=== PATIENT | male | born 1960 | race Caucasian/White ===

== ENCOUNTER 2023-01-30 16:11 | Observation (INO) | payer BC, SELFPAY ==
[2023-01-30] VITALS (40 sets, daily range): BP systolic 153–176; BP diastolic 90–102; PULSE 55–64; RESP 18–24; TEMP 36.4–36.8; O2SAT 95–99; BMI 31.3
--- NOTE | 2023-01-30 16:19 | CRLHL7_ITS ---
For Patients: As a result of the Century Cures Act, medical imaging exams and procedure reports are released immediately into your electronic medical record. You may view this report before your referring provider. If you have questions, please contact your health care provider. INDICATION: Weakness TECHNIQUE: Non-contrast CT of the head is submitted. No comparisons. FINDINGS: The cerebellar tonsils extend 1.5 centimeters below the foramen magnum. The remainder of the ventricles, sulci and gyri are of normal size, shape and contour. Midline structures are centrally located. No convincing evidence of intra- or extra-axial fluid collections. IMPRESSION: 1. No radiographic evidence of acute intracranial abnormalities. 2. 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 Dictated by Alvin Marc MD @ 01/30/2023 4:45:33 PM Please note that all CT scans at this facility use dose modulation, iterative reconstruction, and/or weight-based dosing when appropriate to reduce radiation dose to as low as reasonably achievable. Dictated by: Alvin Marc MD @ 01/30/2023 16:45:47 (Electronically Signed)
[2023-01-30 16:35] LABS: HCO3 VBG 27 mmol/L (21-28); Lactate* 1.5 mmol/L (0.5-1.9); PCO2 VBG 46 mmHG (40-50); PO2 VBG 41.3 mmHG (25-47); pH VBG 7.371 (7.32-7.43)
[2023-01-30 16:37] LABS: Basophils Absolute Auto 0.01 K/uL (0.00-0.30); Basophils Percent Auto 0.1 % (0.0-3.0); Eosinophils Absolute Auto 0.06 K/uL (0.00-0.50); Eosinophils Percent Auto 0.7 % (0.0-7.0); Hemoglobin* 14.3 gm/dL (13.5-17.5); Immature Granulocytes Abs Auto 0.01 K/uL (0.00-0.30); Immature Granulocytes Pct Auto 0.1 %; Lymphocytes Percent Auto 14.4 % (20-44); Mean Corpuscular HGB Conc 33 gm/dL (32-36); Mean Corpuscular Hemoglobin 30 pg (26-34); Mean Corpuscular Volume 92 fL (80-100); Neutrophils Percent Auto 79.7 % (42.0-72.0); Platelet Count* 218 K/uL (140-440); RDW Coefficient of Variation % 12.7 % (11.5-15.5); Red Blood Count 4.81 m/uL (4.30-5.90); White Blood Count* 8.39 K/uL (4.50-11.00)
[2023-01-30 16:38] LABS: Slide Review Reflex No
[2023-01-30] MEDS: 0.9 % SODIUM CHLORIDE 1000 ml 1,000 ML IV (16:45)
[2023-01-30 16:53] LABS: Chloride* 103 mmol/L (96-114); Potassium* 3.3 mmol/L (3.6-5.1); Sodium* 136 mmol/L (135-149)
[2023-01-30 16:54] LABS: Albumin* 4.3 g/dL (3.3-5.0)
[2023-01-30 16:55] LABS: Creatinine* 0.9 mg/dL (0.5-1.5); Estimated Glomerular Filt Rate 96 ml/min; INR 1.05 (0.91-1.10); Prothrombin Time 14.3 Seconds
[2023-01-30 16:56] LABS: Blood Urea Nitrogen* 19 mg/dL (7-30); Calcium* 9.1 mg/dL (8.4-10.6); Carbon Dioxide* 26 mmol/L (20-32); Glucose* 144 mg/dL (60-115)
[2023-01-30 16:57] LABS: Alanine Aminotransferase* 26 U/L (4-50); Alkaline Phosphatase* 95 U/L (40-150); Aspartate Amino Transferase* 29 U/L (12-35); Bilirubin Direct* 0.3 mg/dL (0.0-0.5); Total Protein* 7.1 g/dL (6.0-8.3)
[2023-01-30 17:01] LABS: C Reactive Protein* < 0.5 mg/dL (0.5-1.0)
--- NOTE | 2023-01-30 17:08 | ED_ITS ---
HPI - General Adult General Date Seen: 01/30/23 Chief complaint: Altered Mental Status Stated complaint: Heat exhaustion Time Seen by Provider: 01/30/23 16:18 Source: patient and EMS Mode of arrival: EMS Limitations: altered mental status History of Present Illness HPI narrative: Patient is a 62-year-old male brought in by EMS after being found minimally responsive in his tractor. He tells me that around 230 or so a neighbor had come by to talk to him, he started feel tired at that point so he decided to just sit in his truck and take a break. EMS reported that he was minimally responsive but improved and route. They had noted a blood sugar of 144, did not check his temperature. He does tell me that he drank a bottle and half of Gatorade earlier today. Medics had reported that he was possibly having some left-sided symptoms but he denies any unilateral weakness, difficulty with speech, and I do not see evidence of a facial droop. He does note that he developed headache earlier which has improved now although it is not gone. Denies neck pain. No trauma. No recent illness, fevers, chills, vomiting, black or bloody stools or other complaints. Related Data Home Medications Medication Instructions Recorded Confirmed atorvastatin 20 mg tablet 20 mg PO DAILY 01/30/23 01/30/23 losartan 100 1 tab PO DAILY 01/30/23 01/30/23 mg-hydrochlorothiazide 25 mg tablet metoprolol succinate 25 mg 25 mg PO DAILY 01/30/23 01/30/23 tablet,extended release 24 hr mometasone-formoterol HFA 100 2 puff inhalation BID 01/30/23 01/30/23 mcg-5 mcg/actuation aerosol inhaler (Dulera) roflumilast 500 mcg tablet 500 mcg PO DAILY 01/30/23 01/30/23 Allergies Allergy/AdvReac Type Severity Reaction Status Date / Time No Known Drug Allergies Allergy Verified 01/30/23 16:20 Review of Systems Status of ROS: Reports: 10 or more systems reviewed and unremarkable except as noted in History and below [facility] Medical History (Updated 01/30/23 @ 23:20 by Tara Calixto MD) Hyperlipidemia ?E78.5 - Hyperlipidemia, unspecified (ICD-10) COPD (chronic obstructive pulmonary disease) ?J44.9 - Chronic obstructive pulmonary disease, unspecified (ICD-10) Essential hypertension ?I10 - Essential (primary) hypertension (ICD-10) Surgical History (Updated 01/30/23 @ 23:16 by Tara Calixto MD) History of appendectomy ?Z90.49 - Acquired absence of other specified parts of digestive tract (ICD- 10) H/O umbilical hernia repair ?Z98.890 - Other specified postprocedural states (ICD-10) ?Z87.19 - Personal history of other diseases of the digestive system (ICD-10) Social History What is your current living situation: I presently have a place to live Problems where you live: no known problems Problems where you live details: none In the past 12 months, utilities in danger of being shut off: no In the past 12 mos, have been you worried that your food would run out before you had money to buy more?: never true In the past 12 mos, the food you bought just didn't last and you didn't have money to buy more?: never true Highest level of school completed/degree received: high school graduate Smoking Status: Never smoker How often do you have a drink containing alcohol: monthly or less How often do you have six or more drinks on one occasion: Never AUDIT-C Alcohol total score: 1 Non-prescribed substance use: denies use Caffeine: No How often does anyone, including family, friends and others, physically hurt you : How often does anyone, including family, friends and others, insult or talk down to you: How often does anyone, including family, friends and others, threaten you with harm: How often does anyone, including family, friends and others, scream or curse at you: service: No Exam Narrative: Exam Narrative: Vital signs as noted above. In general, an alert, nontoxic patient. He looks a little sleepy but is awake and conversant. Head: Normocephalic, atraumatic. Eyes: Pupils are equal reactive. Extraocular movements are full. Conjunctivae are normal. ENT: Mucous membranes are moist. Throat is normal. Neck: Supple without lymphadenopathy. Heart: Bradycardic and regular, no murmur. Lungs: Clear bilaterally. No increased work of breathing, crackles or wheezes. Abdomen: Soft and nontender. No organomegaly. Extremities: Well perfused. No edema. No calf tenderness. Pulses intact. Neurologic: Patient is alert and oriented to person and place. Speech is fluent. Face is symmetric. Moves all extremities equally. Strength is 5 of 5 in bilateral upper and lower extremities. Cerebellar function intact by finger- nose testing. Affect: Normal. Skin: Warm and dry. Well perfused. He had a wood tick attached to his left chest, which are removed. Tick was not engorged, suspect it was recently entire chest. Const: Vital Signs, click to edit/add: Vital Signs - 24 hr 01/30/23 16:18 01/30/23 16:19 01/30/23 16:31 Temperature 97.7 F Pulse Rate Pulse Rate [Pulse Oximeter] 61 Respiratory Rate 24 Blood Pressure 157/102 H Blood Pressure [Le ft Upper Arm] 153/101 H Blood Pressure [Ri ght Arm] Pulse Oximetry 98 96 Oxygen Delivery Me od Room Air 01/30/23 16:40 01/30/23 16:42 01/30/23 16:45 Temperature Pulse Rate 59 L 58 L 59 L Pulse Rate [Pulse Oximeter] Respiratory Rate Blood Pressure 160/94 H Blood Pressure [Le ft Upper Arm] Blood Pressure [Ri ght Arm] Pulse Oximetry 95 96 96 Oxygen Delivery Me od 01/30/23 16:47 01/30/23 16:48 01/30/23 17:00 Temperature Pulse Rate 58 L 59 L 61 Pulse Rate [Pulse Oximeter] Respiratory Rate Blood Pressure 156/96 H Blood Pressure [Le ft Upper Arm] Blood Pressure [Ri ght Arm] Pulse Oximetry 96 96 97 Oxygen Delivery Me od 01/30/23 17:02 01/30/23 17:15 01/30/23 17:17 Temperature Pulse Rate 60 62 61 Pulse Rate [Pulse Oximeter] Respiratory Rate Blood Pressure 158/93 H 164/95 H Blood Pressure [Le ft Upper Arm] Blood Pressure [Ri ght Arm] Pulse Oximetry 97 98 97 Oxygen Delivery Me thod 01/30/23 17:30 01/30/23 17:32 01/30/23 17:33 Temperature Pulse Rate 60 59 L 59 L Pulse Rate [Pulse Oximeter] Respiratory Rate Blood Pressure 161/93 H Blood Pressure [Le ft Upper Arm] Blood Pressure [Ri ght Arm] Pulse Oximetry 98 98 97 Oxygen Delivery Me thod 01/30/23 17:44 01/30/23 17:45 01/30/23 17:47 Temperature 97.6 F Pulse Rate 60 63 Pulse Rate [Pulse Oximeter] Respiratory Rate Blood Pressure 155/94 H Blood Pressure [Le ft Upper Arm] Blood Pressure [Ri ght Arm] Pulse Oximetry 98 98 Oxygen Delivery Me thod 01/30/23 18:00 01/30/23 18:02 01/30/23 18:15 Temperature Pulse Rate 59 L 60 59 L Pulse Rate [Pulse Oximeter] Respiratory Rate Blood Pressure 158/93 H Blood Pressure [Le ft Upper Arm] Blood Pressure [Ri ght Arm] Pulse Oximetry 97 98 97 Oxygen Delivery Me thod 01/30/23 18:17 01/30/23 18:30 01/30/23 18:32 Temperature Pulse Rate 59 L 58 L 58 L Pulse Rate [Pulse Oximeter] Respiratory Rate Blood Pressure 162/99 H 156/98 H Blood Pressure [Le ft Upper Arm] Blood Pressure [Ri ght Arm] Pulse Oximetry 98 97 97 Oxygen Delivery Me thod 01/30/23 18:45 01/30/23 18:47 01/30/23 19:00 Temperature Pulse Rate 58 L 60 63 Pulse Rate [Pulse Oximeter] Respiratory Rate Blood Pressure 163/99 H Blood Pressure [Le ft Upper Arm] Blood Pressure [Ri ght Arm] Pulse Oximetry 98 98 99 Oxygen Delivery Me thod 01/30/23 19:02 01/30/23 19:07 01/30/23 19:15 Temperature Pulse Rate 63 64 62 Pulse Rate [Pulse Oximeter] Respiratory Rate Blood Pressure 164/92 H 169/90 H Blood Pressure [Le ft Upper Arm] Blood Pressure [Ri ght Arm] Pulse Oximetry 98 99 98 Oxygen Delivery Me thod 01/30/23 19:17 01/30/23 19:18 01/30/23 19:30 Temperature Pulse Rate 61 60 59 L Pulse Rate [Pulse Oximeter] Respiratory Rate Blood Pressure 163/94 H Blood Pressure [Le ft Upper Arm] Blood Pressure [Ri ght Arm] Pulse Oximetry 97 97 97 Oxygen Delivery Me thod 01/30/23 19:32 01/30/23 19:53 01/30/23 19:54 Temperature Pulse Rate 58 L 61 62 Pulse Rate [Pulse Oximeter] Respiratory Rate Blood Pressure 155/96 H 176/102 H Blood Pressure [Le ft Upper Arm] Blood Pressure [Ri ght Arm] Pulse Oximetry 96 97 97 Oxygen Delivery Me thod 01/30/23 20:00 01/30/23 20:04 01/30/23 20:42 Temperature 98.2 F Pulse Rate 59 L Pulse Rate [Pulse Oximeter] 57 L Respiratory Rate 18 Blood Pressure 165/94 H Blood Pressure [Le ft Upper Arm] Blood Pressure [Ri ght Arm] 157/95 H Pulse Oximetry 98 98 Oxygen Delivery Me thod Room Air Documenting provider has reviewed patient's vital signs: yes Course Course Hospital Course: Patient's temperature here is normal, I do not think this represents heat stroke. Following initial evaluation he had an EKG which showed a sinus rhythm of 65 beats per minute, no acute ST segment changes. 1 PVC. His initial troponin is 0, will recheck a troponin in 90 minutes or so although I do not have anything overtly to suggest acute coronary syndrome based on his symptoms. I did have a head CT done right away to rule out intracranial hemorrhage, by my review this was negative. He has a Chiari 1 malformation without evidence of hydrocephalus but otherwise a normal head CT according to Radiology. Labs are returning very reassuring. White blood cell count is normal at 8.4, hemoglobin 14.3, normal platelets. Mild left shift with 78% neutrophils. His CRP is less than 0.5. A venous gas was normal with a pH of 7.37, pCO2 46, bicarb of 27. Lactate was normal 1.5. Metabolic panel is normal, sodium is 136, potassium mildly low at 3.3. BUN and creatinine are normal. LFTs are unremarkable. TSH is pending. On recheck, he is feeling more somnolent but still is oriented to date, place, able to tell me his birthday and 's name. Exam remains nonfocal with equal strength in upper and lower extremities and no facial droop. Reevaluation(s) Reevaluation #1: Patient had some brief episodes of bradycardia into the 30s but these did not seem to correlate with any kind of symptoms. Blood pressure was stable. Repeat EKG shows a sinus rhythm, ventricular rate in the 50s. I did look with the bedside ultrasound, aorta looked normal, overall cardiac function looked unremarkable. He noted some upper abdominal pain so I elected to do a CT scan of the abdomen. I noted cysts on both kidneys, no other significant findings. Read by Radiology as showing multiple cysts but 1 which was hyperdense and follow-up imaging recommended. Did have difficulty voiding initially but then was able to void about 500 mL and abdominal pain was improved. Case was discussed with Neurology, Dr. Pennington at [facility]. Given unremarkable intracranial imaging and nonfocal exam, he did not feel that emergent MRI was necessary. We did discuss a possible diagnosis of PRES, not entirely ruled out despite patient's normal blood pressure, but CT does not show any abnormal findings and at this point he would recommend observation unless exam changes. He was slightly more alert later in his ER stay but is not at baseline mental status. Etiology of symptoms is unclear at this time. Plan is for admission to the hospital for observation and further testing if indicated. Currently no sign of infection, metabolic derangement, ischemia or hemorrhagic stroke, acute coronary syndrome, or environmental issue such as heat stroke. Vital Signs Vital signs: Initial Vital Signs Temperature 97.7 F 01/30/23 16:18 Temperature Source Oral 01/30/23 16:18 Pulse Rate 61 01/30/23 16:18 Respiratory Rate 24 01/30/23 16:18 Blood Pressure 153/101 H 01/30/23 16:18 Blood Pressure Mean 118 H 01/30/23 16:18 Blood Pressure Position Supine 01/30/23 16:18 Pulse Oximetry 98 01/30/23 16:18 Oxygen Delivery Method Room Air 01/30/23 16:18 Vital Signs Temperature 97.7 F 01/30/23 16:18 Pulse Rate 61 01/30/23 16:18 Respiratory Rate 24 01/30/23 16:18 Blood Pressure 153/101 H 01/30/23 16:18 Pulse Oximetry 98 01/30/23 16:18 Oxygen Delivery Method Room Air 01/30/23 16:18 Temperature 98.2 F 01/30/23 20:42 Pulse Rate 57 L 01/30/23 20:42 Respiratory Rate 18 01/30/23 20:42 Blood Pressure 157/95 H 01/30/23 20:42 Pulse Oximetry 98 01/30/23 20:42 Oxygen Delivery Method Room Air 01/30/23 20:42 Medical Decision Making Lab Data Labs: Lab Results 01/30/23 01/30/23 01/30/23 Range/Units 16:28 18:19 20:00 WBC 8.39 (4.50-11.00) K/uL RBC 4.81 (4.30-5.90) m/uL Hgb 14.3 (13.5-17.5) gm/dL Hct 44.0 (37.0-53.0) % MCV 92 (80-100) fL MCH 30 (26-34) pg MCHC 33 (32-36) gm/dL RDW Coeff of Daniela 12.7 (11.5-15.5) % Plt Count 218 (140-440) K/uL Neut % (Auto) 79.7 H (42.0-72.0) % Lymph % (Auto) 14.4 L (20-44) % [place] % (Auto) 5.0 (0.0-11.0) % Eos % (Auto) 0.7 (0.0-7.0) % Baso % (Auto) 0.1 (0.0-3.0) % Neut # (Auto) 6.70 (1.7-7.0) K/uL Lymph # (Auto) 1.20 (0.90-2.90) K/uL [place] # (Auto) 0.40 (0.00-0.90) K/UL Eos # (Auto) 0.06 (0.00-0.50) K/uL Baso # (Auto) 0.01 (0.00-0.30) K/uL INR 1.05 (0.91-1.10) VBG pH 7.371 (7.32-7.43) VBG pCO2 46 (40-50) mmHG VBG pO2 41.3 (25-47) mmHG VBG HCO3 27 (21-28) mmol/L Sodium 136 (135-149) mmol/L Potassium 3.3 L (3.6-5.1) mmol/L Chloride 103 (96-114) mmol/L Carbon Dioxide 26 (20-32) mmol/L BUN 19 (7-30) mg/dL Creatinine 0.9 (0.5-1.5) mg/dL Estimated GFR 96 ml/min Glucose 144 H (60-115) mg/dL Lactate 1.5 (0.5-1.9) mmol/L Calcium 9.1 (8.4-10.6) mg/dL Total Bilirubin 1.0 (0.1-1.5) mg/dL Direct Bilirubin 0.3 (0.0-0.5) mg/dL AST 29 (12-35) U/L ALT 26 (4-50) U/L Alkaline Phosphatase 95 (40-150) U/L C-Reactive Protein < 0.5 L (0.5-1.0) mg/dL Total Protein 7.1 (6.0-8.3) g/dL Albumin 4.3 (3.3-5.0) g/dL TSH 1.120 (0.270-4.200) uIU/mL Urine Color Yellow (Yellow) Urine Appearance Clear (Clear) Urine pH 6.5 (5.0-8.5) Ur Specific [place] 1.020 (1.000-1.030) Urine Protein Negative (Negative) Urine Glucose (UA) Negative (Negative) Urine Ketones Negative (Negative) Urine Blood Negative (Negative) Urine Nitrite Negative (Negative) Urine Bilirubin Negative (Negative) Urine Urobilinogen 0.2 (0.2-1.0) Ur Leukocyte Esterase Negative (Negative) Urine RBC 0-2 (0-2) Urine WBC 0-2 (0-5) Ur Squamous Epith Cells None (None-Few) Other Sediment SPERM (None) Urine Bacteria None (None) Ethyl Alcohol < 0.01 L (0.01-0.03) % SARS-CoV-2 (PCR) Negative SARS-CoV-2 (Negative) POC Troponin I 0.00 L 0.01 (0.01-0.04) ng/ml Discharge Plan Discharge Clinical Impression: Altered mental status Patient Disposition: Admitted As Inpatient Condition: Improved
[2023-01-30 17:12] LABS: SARS PCR* Negative SARS-CoV-2 (Negative)
--- NOTE | 2023-01-30 17:16 | ED.NURSE ---
Attempted to help pt sit at bedside to void into urinal, pt got extremely dizzy and flopped back onto the bed. Pt was still A&O, but stated he was extremely dizzy. Bladder scan done, ~3mLs. MD Isaacs updated.
[2023-01-30 18:03] LABS: Ethanol* < 0.01 % (0.01-0.03)
--- NOTE | 2023-01-30 18:30 | ED.NURSE ---
Pt HR noted to drop to ~35 on the monitor. This is the second time this web content writer has noticed the pt's HR drop. Pt asymptomatic. Pt HR recovered to 50+ within a minute. notified.
[2023-01-30 18:45] LABS: Troponin, Point-of-Care* 0.01 ng/ml (0.01-0.04)
--- NOTE | 2023-01-30 18:55 | ED.NURSE ---
Pt stating need to urinate. Unable to void even with feeling of fullness. Bladder scan done, ~385mLs. Pt HR dropped to ~26 on the monitor during bladder scan. Pt states asymptomatic during this episode. HR recovered to 50+ within a minute again. notified of all these findings.
--- NOTE | 2023-01-30 19:10 | ED.NURSE ---
Pt HR dropped again on the monitor into the 30's. Radial pulse palpated by resume writer and monitor reading was accurate. Pt now complaining of left-sided chest pain and abdominal pain. MD requested to come to bedside. Pacer pads applied to pt. MD at bedside to evaluate pt. MD ultrasound at bedside. EKG set up to capture rhythm if HR drops again.
--- NOTE | 2023-01-30 19:31 | CRLHL7_ITS ---
For Patients: As a result of the Century Cures Act, medical imaging exams and procedure reports are released immediately into your electronic medical record. You may view this report before your referring provider. If you have questions, please contact your health care provider. INDICATION: Upper abdominal pain, weakness TECHNIQUE: CT abdomen and pelvis acquired with 98 cc Isovue 370 IV contrast. Permanently recorded images are archived. COMPARISON: None. FINDINGS: Lower chest: Unremarkable. Liver: Unremarkable. Normal in size and attenuation. No suspicious masses. Gallbladder and bile ducts: Unremarkable. No stones or inflammation. No biliary dilatation. Pancreas: Unremarkable. No mass or inflammation. Spleen: Scattered calcified granulomata. Adrenal glands: Unremarkable. No nodules. Kidneys, Ureters, and Bladder: 1.9 cm hyperdense exophytic right renal lesion. Multiple bilateral simple renal cysts. Unremarkable ureters and bladder. GI tract: Unremarkable. Normal in caliber. No sign of inflammation. The appendix is not clearly visualized; however, there are no inflammatory changes in the right lower quadrant. Vasculature: Abdominal aorta is normal in caliber. Mesenteric arteries are patent. Lymph nodes: No lymphadenopathy. Peritoneum/Abdominal Wall: Unremarkable. No free air or significant free fluid. Pelvis: Unremarkable. Bones: Unremarkable for age. IMPRESSION: No acute findings within the abdomen and pelvis. Exophytic 1.9 cm hyperdense right renal lesion. This could represent a proteinaceous or hemorrhagic cyst; however, renal cell carcinoma cannot be entirely excluded. As result, recommend renal CT or MRI for further evaluation. Please note that all CT scans at this facility use dose modulation, iterative reconstruction, and/or weight-based dosing when appropriate to reduce radiation dose to as low as reasonably achievable. Dictated by Marcos Gallegos MD @ 01/30/2023 8:15:02 PM (Electronically Signed)
--- NOTE | 2023-01-30 19:35 | W.PC.EDHO ---
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 Very warm, tired. Weaker than usual. ED Triage Date of Onset of 01/30/23 Symptoms Female History Patient Ridgeley Coma Scale Ridgeley coma scale total score 15 Pain Pain Intensity 6 Pain Intensity 4 Pain Scale Used Allred-Santos (Faces) Pain Scale Used Allred-Santos (Faces) IV Insertion/Site Date of IV Line Insertion [ 01/30/23 Left Antecubital] Date of IV Line Insertion [ 01/30/23 Right Antecubital] Oxygen Administration Pulse Oximetry 97 Pulse Oximetry 98 Pulse Oximetry 99 Pulse Oximetry 98 Pulse Oximetry 99 Pulse Oximetry 98 Pulse Oximetry 98 Pulse Oximetry 97 Pulse Oximetry 97 Pulse Oximetry 98 Pulse Oximetry 97 Pulse Oximetry 98 Pulse Oximetry 97 Pulse Oximetry 98 Pulse Oximetry 98 Pulse Oximetry 97 Pulse Oximetry 98 Pulse Oximetry 98 Pulse Oximetry 97 Pulse Oximetry 98 Pulse Oximetry 97 Pulse Oximetry 97 Pulse Oximetry 96 Pulse Oximetry 96 Pulse Oximetry 96 Pulse Oximetry 96 Pulse Oximetry 95 Pulse Oximetry 96 Pulse Oximetry 98 Oxygen Delivery Method Room Air Cardiac Monitoring EKG Method 12 Lead
--- NOTE | 2023-01-30 19:45 | ED.NURSE ---
Pacer pads removed from pt for completion of CT scan.
--- NOTE | 2023-01-30 20:08 | ED.NURSE ---
Pt assisted to stand at the bedside to urinate. Pt very dizzy and unsteady sitting up and standing. Pt able to stand with assist of one, voided into urinal ~550mLs pale yellow urine. UA collected and sent to lab. notified.
[2023-01-30 20:11] LABS: Appearance Urine Clear (Clear); Bilirubin Urine Negative (Negative); Blood Urine Negative (Negative); Color Urine Yellow (Yellow); Glucose Urine Negative (Negative); Ketones Urine Negative (Negative); Leukocyte Esterase Urine Negative (Negative); Nitrite Urine Negative (Negative); Protein Urine Negative (Negative); Urobilinogen Urine 0.2 (0.2-1.0); pH Urine 6.5 (5.0-8.5)
[2023-01-30 20:21] LABS: RBC Urine 0-2 (0-2); WBC Urine 0-2 (0-5)
[2023-01-30 20:24] LABS: Other Sediment Urine SPERM
--- NOTE | 2023-01-30 21:21 | CRLHL7_ITS ---
For Patients: As a result of the Century Cures Act, medical imaging exams and procedure reports are released immediately into your electronic medical record. You may view this report before your referring provider. If you have questions, please contact your health care provider. INDICATION: Headache, syncope, weakness. TECHNIQUE: CTA neck with contrast bolus tracking, 3D angiographic rendering using maximum intensity projection (MIP) and images permanently archived. FINDINGS: There is minor carotid atherosclerosis. There is no significant carotid artery stenosis or dissection. There is no significant vertebral artery stenosis or dissection. The soft tissues of the neck are within normal limits. The cervical spine is in normal alignment. Degenerative changes are noted in the cervical spine. IMPRESSION: Unremarkable neck CTA. No significant carotid or vertebral artery stenosis or dissection. Please note that all CT scans at this facility use dose modulation, iterative reconstruction, and/or weight-based dosing when appropriate to reduce radiation dose to as low as reasonably achievable. Dictated by Adair Tenorio MD @ 01/31/2023 11:53:19 AM (Electronically Signed)
--- NOTE | 2023-01-30 21:21 | CRLHL7_ITS ---
For Patients: As a result of the Century Cures Act, medical imaging exams and procedure reports are released immediately into your electronic medical record. You may view this report before your referring provider. If you have questions, please contact your health care provider. INDICATION: Headache, syncope, weakness. TECHNIQUE: CTA head with contrast bolus tracking, 3D angiographic rendering using maximum intensity projection (MIP) and images permanently archived. FINDINGS: There is normal opacification of the intracranial vasculature. There is no large vessel occlusion. No aneurysm is identified. IMPRESSION: Unremarkable head CTA. No large vessel occlusion. Please note that all CT scans at this facility use dose modulation, iterative reconstruction, and/or weight-based dosing when appropriate to reduce radiation dose to as low as reasonably achievable. Dictated by Adair Tenorio MD @ 01/31/2023 11:51:38 AM (Electronically Signed)
--- NOTE | 2023-01-30 21:25 | PM.IMHP1 ---
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 This afternoon, he started feeling tired and had a frontal headache, sat in his truck for a bit, and was acting abnormally in front of his neighbor. He initially thought he had head stroke; did drink fluids during the day. He was minimally responsive when EMS first arrived, BG 144, temperature normal upon arrival to ED. No recent trauma. ER Course and Findings: - no acute abnormalities on head CT (Chiari 1 malformation) - sinus bradycardia with concern for intermittent pulse decrease into the 30s - CT of Ab/pelvis incidentally noted R renal lesion (outpatient renal CT/MRI recommended) Given patient's bradycardia and symptoms, admitted to the hospital. He is on Metoprolol and took a dose this morning. On the floor, patient notes headache posteriorly, no arm or shoulder pain. No lateralizing neurological symptoms. Medical history updated below, PCP is Dr. Stevo Gongora in [place]. Review of Systems Status of ROS: Reports: 10 or more systems reviewed and unremarkable except as noted in History and below Narrative: - tick found on skin during ER visit, no other skin concerns PFSH PFSH Medical History (Updated 01/30/23 @ 23:31 by Tara Calixto MD) Hyperlipidemia ?E78.5 - Hyperlipidemia, unspecified (ICD-10) COPD (chronic obstructive pulmonary disease) ?J44.9 - Chronic obstructive pulmonary disease, unspecified (ICD-10) Essential hypertension ?I10 - Essential (primary) hypertension (ICD-10) Surgical History (Updated 01/30/23 @ 23:16 by Tara Calixto MD) History of appendectomy ?Z90.49 - Acquired absence of other specified parts of digestive tract (ICD-10) H/O umbilical hernia repair ?Z98.890 - Other specified postprocedural states (ICD-10) ?Z87.19 - Personal history of other diseases of the digestive system (ICD-10) Social History (Updated 01/30/23 @ 23:26 by Tara Calixto MD) Narrative: Lives with Brandi (MDM if needed), ryan, 3 adult children. Nonsmoker, rare ETOH. Requests Full Code status. What is your current living situation: I presently have a place to live Problems where you live: no known problems Problems where you live details: none In the past 12 months, utilities in danger of being shut off: no In the past 12 mos, have been you worried that your food would run out before you had money to buy more?: never true In the past 12 mos, the food you bought just didn't last and you didn't have money to buy more?: never true Highest level of school completed/degree received: high school graduate Smoking Status: Never smoker How often do you have a drink containing alcohol: monthly or less How often do you have six or more drinks on one occasion: Never AUDIT-C Alcohol total score: 1 Non-prescribed substance use: denies use Caffeine: No How often does anyone, including family, friends and others, physically hurt you: How often does anyone, including family, friends and others, insult or talk down to you: How often does anyone, including family, friends and others, threaten you with harm: How often does anyone, including family, friends and others, scream or curse at you: service: No Meds Home Medications and Allergies Home Medications Medication Instructions Recorded Confirmed Type atorvastatin 20 mg tablet 20 mg PO DAILY 01/30/23 01/30/23 History losartan 100 1 tab PO DAILY 01/30/23 01/30/23 History mg-hydrochlorothiazide 25 mg tablet metoprolol succinate 25 mg 25 mg PO DAILY 01/30/23 01/30/23 History tablet,extended release 24 hr mometasone-formoterol HFA 100 2 puff inhalation BID 01/30/23 01/30/23 History mcg-5 mcg/actuation aerosol inhaler (Dulera) roflumilast 500 mcg tablet 500 mcg PO DAILY 01/30/23 01/30/23 History Allergies Allergy/AdvReac Type Severity Reaction Status Date / Time No Known Drug Allergies Allergy Verified 01/30/23 16:20 Exam Narrative: Exam Narrative: GEN: Alert and oriented, answering questions appropriately HEENT: EOMIs bilaterally, no scleral icterus, tongue protrudes midline CV: Sinus bradycardia with rate in the 50s, no concerning murmurs R: LCTA bilaterally without concerning wheezing, air movement adequate Ext: wwp, no concerning edema Skin: No concerning skin lesions or rashes on exposed skin Neuro: No facial droop, normal and symmetric automatic hemmer strength Psych: Appropriate Const: Vital Signs, click to edit/add: Vital Signs - 24 hr 01/30/23 16:18 01/30/23 16:19 01/30/23 16:31 Temperature 97.7 F Pulse Rate Pulse Rate [Pulse Oximeter] 61 Respiratory Rate 24 Blood Pressure 157/102 H Blood Pressure [Le ft Upper Arm] 153/101 H Blood Pressure [Ri ght Arm] Pulse Oximetry 98 96 Oxygen Delivery Me od Room Air 01/30/23 16:40 01/30/23 16:42 01/30/23 16:45 Temperature Pulse Rate 59 L 58 L 59 L Pulse Rate [Pulse Oximeter] Respiratory Rate Blood Pressure 160/94 H Blood Pressure [Le ft Upper Arm] Blood Pressure [Ri ght Arm] Pulse Oximetry 95 96 96 Oxygen Delivery Me thod 01/30/23 16:47 01/30/23 16:48 01/30/23 17:00 Temperature Pulse Rate 58 L 59 L 61 Pulse Rate [Pulse Oximeter] Respiratory Rate Blood Pressure 156/96 H Blood Pressure [Le ft Upper Arm] Blood Pressure [Ri ght Arm] Pulse Oximetry 96 96 97 Oxygen Delivery Me od 01/30/23 17:02 01/30/23 17:15 01/30/23 17:17 Temperature Pulse Rate 60 62 61 Pulse Rate [Pulse Oximeter] Respiratory Rate Blood Pressure 158/93 H 164/95 H Blood Pressure [Le ft Upper Arm] Blood Pressure [Ri ght Arm] Pulse Oximetry 97 98 97 Oxygen Delivery Me od 01/30/23 17:30 01/30/23 17:32 01/30/23 17:33 Temperature Pulse Rate 60 59 L 59 L Pulse Rate [Pulse Oximeter] Respiratory Rate Blood Pressure 161/93 H Blood Pressure [Le ft Upper Arm] Blood Pressure [Ri ght Arm] Pulse Oximetry 98 98 97 Oxygen Delivery Me od 01/30/23 17:44 01/30/23 17:45 01/30/23 17:47 Temperature 97.6 F Pulse Rate 60 63 Pulse Rate [Pulse Oximeter] Respiratory Rate Blood Pressure 155/94 H Blood Pressure [Le ft Upper Arm] Blood Pressure [Ri ght Arm] Pulse Oximetry 98 98 Oxygen Delivery Me od 01/30/23 18:00 06/13/23 18:02 01/30/23 18:15 Temperature Pulse Rate 59 L 60 59 L Pulse Rate [Pulse Oximeter] Respiratory Rate Blood Pressure 158/93 H Blood Pressure [Le ft Upper Arm] Blood Pressure [Ri ght Arm] Pulse Oximetry 97 98 97 Oxygen Delivery Me thod 01/30/23 18:17 01/30/23 18:30 01/30/23 18:32 Temperature Pulse Rate 59 L 58 L 58 L Pulse Rate [Pulse Oximeter] Respiratory Rate Blood Pressure 162/99 H 156/98 H Blood Pressure [Le ft Upper Arm] Blood Pressure [Ri ght Arm] Pulse Oximetry 98 97 97 Oxygen Delivery Me thod 01/30/23 18:45 01/30/23 18:47 01/30/23 19:00 Temperature Pulse Rate 58 L 60 63 Pulse Rate [Pulse Oximeter] Respiratory Rate Blood Pressure 163/99 H Blood Pressure [Le ft Upper Arm] Blood Pressure [Ri ght Arm] Pulse Oximetry 98 98 [facility] 01/[facility] 19:02 01/30/23 19:07 01/30/23 19:15 Temperature Pulse Rate 63 64 62 Pulse Rate [Pulse Oximeter] Respiratory Rate Blood Pressure 164/92 H 169/90 H Blood Pressure [Le ft Upper Arm] Blood Pressure [Ri ght Arm] Pulse Oximetry 98 99 98 [facility] 01/30/23 19:17 01/30/23 19:18 01/30/23 19:30 Temperature Pulse Rate 61 60 59 L Pulse Rate [Pulse Oximeter] Respiratory Rate Blood Pressure 163/94 H Blood Pressure [Le ft Upper Arm] Blood Pressure [Ri ght Arm] Pulse Oximetry 97 97 97 [facility] 01[facility]30/23 19:32 01/30/23 19:53 01/30/23 19:54 Temperature Pulse Rate 58 L 61 62 Pulse Rate [Pulse Oximeter] Respiratory Rate Blood Pressure 155/96 H 176/102 H Blood Pressure [Le ft Upper Arm] Blood Pressure [Ri ght Arm] Pulse Oximetry 96 97 97 Oxygen Delivery Pr thod 01/30/23 20:00 01/30/23 20:04 01/30/23 20:42 Temperature 98.2 F Pulse Rate 59 L Pulse Rate [Pulse Oximeter] 57 L Respiratory Rate 18 Blood Pressure 165/94 H Blood Pressure [Le ft Upper Arm] Blood Pressure [Ri ght Arm] 157/95 H Pulse Oximetry 98 98 Oxygen Delivery Me thod Room Air Hospitalist - H&P: Result Labs Labs: Short CBC 01/30/23 Range/Units 16:28 WBC 8.39 (4.50-11.00) K/uL Hgb 14.3 (13.5-17.5) gm/dL Hct 44.0 (37.0-53.0) % Plt Count 218 (140-440) K/uL BMP 01/30/23 16:28 Sodium 136 Potassium 3.3 L Chloride 103 Carbon Dioxide 26 BUN 19 Creatinine 0.9 Glucose 144 H Calcium 9.1 Liver Function 01/30/23 Range/Units 16:28 Total Bilirubin 1.0 (0.1-1.5) mg/dL Direct Bilirubin 0.3 (0.0-0.5) mg/dL AST 29 (12-35) U/L ALT 26 (4-50) U/L Alkaline Phosphatase 95 (40-150) U/L Albumin 4.3 (3.3-5.0) g/dL Urine 01/30/23 Range/Units 20:00 Urine Color Yellow (Yellow) Urine Appearance Clear (Clear) Urine pH 6.5 (5.0-8.5) Ur Specific [place] 1.020 (1.000-1.030) Urine Protein Negative (Negative) Urine Glucose (UA) Negative (Negative) Assessment and Plan Assessment and plan (1) Altered mental status: Problem comment: - resolved upon arrival to the floor - ddx: heat-related illness, vasovagal syncope, iatrogenic (Metoprolol), atypical CVA - will follow orthostatic vital signs, obtain CTA head and neck, pending results may follow with MRI - tick noted on skin in ED (no evidence of acute illness) Status: Acute (2) Bradycardia: Problem comment: - hold Metoprolol, follow on telemetry Status: Acute (3) Essential hypertension: Status: Acute (4) COPD (chronic obstructive pulmonary disease): Problem comment: - stable, continue home medications Status: Acute (5) Hyperlipidemia: Problem comment: - continue statin Status: Acute Plan - per above - SCDs for ppx - updated at bedside, questions answered
[2023-01-30] MEDS: POTASSIUM BICARB 25 MEQ EFFERVESCENT TAB PO (23:52)
[2023-01-31] VITALS (7 sets, daily range): BP systolic 117–184; BP diastolic 94–108; PULSE 53–60; RESP 16–18; TEMP 36.4–36.6; O2SAT 95–97
--- NOTE | 2023-01-31 06:06 | PC.NURSE ---
Alert and oriented x 4. Pleasant and cooperative, denies any pain. Patient denies any dizziness or lightheadedness while in bed or sitting at the bedside dangling legs. Reports dizziness feeling happens upon standing and resolves within a few seconds, denies any change in vision or any numbness/tingling when standing. He states that 10 years ago is when he had his last episode and was hospitalized, at that time he was told he had the narrowing at the base of his skull and that the doctor at that time told him it was nothing to worry about. During his episode yesterday he stated that he had the worst headache he's ever had and that he did not lose consciousness and could hear the people around him but he was just unable to respond. Denies any chest pain or indigestion. Lung sounds clear, denies shortness of breath.
[2023-01-31 06:33] LABS: Basophils Absolute Auto 0.01 K/uL (0.00-0.30); Basophils Percent Auto 0.1 % (0.0-3.0); Eosinophils Absolute Auto 0.11 K/uL (0.00-0.50); Eosinophils Percent Auto 1.4 % (0.0-7.0); Hematocrit 43.3 % (37.0-53.0); Hemoglobin* 14.3 gm/dL (13.5-17.5); Immature Granulocytes Abs Auto 0.01 K/uL (0.00-0.30); Immature Granulocytes Pct Auto 0.1 %; Lymphocytes Absolute Auto 1.69 K/uL (0.90-2.90); Lymphocytes Percent Auto 21.2 % (20-44); Mean Corpuscular HGB Conc 33 gm/dL (32-36); Mean Corpuscular Hemoglobin 30 pg (26-34); Mean Corpuscular Volume 91 fL (80-100); Monocytes Percent Auto 9.1 % (0.0-11.0); Neutrophils Absolute Auto 5.43 K/uL (1.7-7.0); Neutrophils Percent Auto 68.1 % (42.0-72.0); Platelet Count* 236 K/uL (140-440); RDW Coefficient of Variation % 12.7 % (11.5-15.5); Red Blood Count 4.77 m/uL (4.30-5.90); White Blood Count* 7.98 K/uL (4.50-11.00)
[2023-01-31 06:34] LABS: Slide Review Reflex No
[2023-01-31 07:00] LABS: Chloride* 104 mmol/L (96-114)
[2023-01-31 07:01] LABS: Potassium* 3.5 mmol/L (3.6-5.1); Sodium* 137 mmol/L (135-149)
[2023-01-31 07:03] LABS: Creatinine* 0.9 mg/dL (0.5-1.5); Est. Creatinine Clearance* 75.61; Estimated Glomerular Filt Rate 96 ml/min
[2023-01-31 07:04] LABS: Blood Urea Nitrogen* 14 mg/dL (7-30); Calcium* 9.3 mg/dL (8.4-10.6); Carbon Dioxide* 27 mmol/L (20-32); Glucose* 105 mg/dL (60-115)
--- NOTE | 2023-01-31 09:44 | P.IMPN_ITS ---
Progress Note: A&P Assessment and plan (1) Bradycardia: Problem details: - holding Metoprolol, follow on telemetry (sinus bradycardia) Status: Acute (2) Altered mental status: Problem details: - with presyncope, resolved upon admission - ddx: heat-related illness, vasovagal syncope, iatrogenic (Metoprolol), atypical CVA - no acute abnormalities on CTA of head/neck - brain MRI and TTE ordered 01/31, results pending - tick noted on skin in ED (no evidence of acute illness) Status: Acute Plan - likely discharge home with later today, pending studies above Subjective Date Seen: 01/31/23 Interval history: Jose David feels better this morning, continues to have a posterior headache. Sinus bradycardia (rate in the 50s) on telemetry overnight. No true orthostasis noted during morning vital signs. Exam Narrative: Exam Narrative: GEN: Alert and oriented, sitting comfortably at edge of bed HEENT: Normal external ears, EOMIs bilaterally CV: RRR, No concerning murmurs R: LCTA bilaterally without concerning wheezing, air movement adequate Ext: wwp, no concerning edema, normal and symmetric safety officer strength Skin: No concerning skin lesions or rashes on exposed skin Neuro: No focal deficits, no resting tremor Psych: Appropriate Const: Vital Signs, click to edit/add: Vital Signs - 24 hr 01/30/23 16:18 01/30/23 16:19 01/30/23 16:31 Temperature 97.7 F Pulse Rate Pulse Rate [Pulse Oximeter] 61 Respiratory Rate 24 Blood Pressure 157/102 H Blood Pressure [Le ft Upper Arm] 153/101 H Blood Pressure [Ri ght Arm] Blood Pressure [or thostatic lying Ri ght Arm] Blood Pressure [or thostatic sitting Right Arm] Blood Pressure [or thostatic standing Right Arm] Pulse Oximetry 98 96 Oxygen Delivery Me thod Room Air 01/30/23 16:40 01/30/23 16:42 01/30/23 16:45 Temperature Pulse Rate 59 L 58 L 59 L Pulse Rate [Pulse Oximeter] Respiratory Rate Blood Pressure 160/94 H Blood Pressure [Le ft Upper Arm] Blood Pressure [Ri ght Arm] Blood Pressure [or thostatic lying Ri ght Arm] Blood Pressure [or thostatic sitting Right Arm] Blood Pressure [or thostatic standing Right Arm] Pulse Oximetry 95 96 96 Oxygen Delivery Me thod 01/30/23 16:47 01/30/23 16:48 01/30/23 17:00 Temperature Pulse Rate 58 L 59 L 61 Pulse Rate [Pulse Oximeter] Respiratory Rate Blood Pressure 156/96 H Blood Pressure [Le ft Upper Arm] Blood Pressure [Ri ght Arm] Blood Pressure [or thostatic lying Ri ght Arm] Blood Pressure [or thostatic sitting Right Arm] Blood Pressure [or thostatic standing Right Arm] Pulse Oximetry 96 96 97 Oxygen Delivery Nv thod 01/30/23 17:02 01/30/23 17:15 01/30/23 17:17 Temperature Pulse Rate 60 62 61 Pulse Rate [Pulse Oximeter] Respiratory Rate Blood Pressure 158/93 H 164/95 H Blood Pressure [Le ft Upper Arm] Blood Pressure [Ri ght Arm] Blood Pressure [or thostatic lying Ri ght Arm] Blood Pressure [or thostatic sitting Right Arm] Blood Pressure [or thostatic standing Right Arm] Pulse Oximetry 97 98 97 Oxygen Delivery Nv thod 01/30/23 17:30 01/30/23 17:32 01/30/23 17:33 Temperature Pulse Rate 60 59 L 59 L Pulse Rate [Pulse Oximeter] Respiratory Rate Blood Pressure 161/93 H Blood Pressure [Le ft Upper Arm] Blood Pressure [Ri ght Arm] Blood Pressure [or thostatic lying Ri ght Arm] Blood Pressure [or thostatic sitting Right Arm] Blood Pressure [or thostatic standing Right Arm] Pulse Oximetry 98 98 97 Oxygen Delivery Nv thod 01/30/23 17:44 01/30/23 17:45 01/30/23 17:47 Temperature 97.6 F Pulse Rate 60 63 Pulse Rate [Pulse Oximeter] Respiratory Rate Blood Pressure 155/94 H Blood Pressure [Le ft Upper Arm] Blood Pressure [Ri ght Arm] Blood Pressure [or thostatic lying Ri ght Arm] Blood Pressure [or thostatic sitting Right Arm] Blood Pressure [or thostatic standing Right Arm] Pulse Oximetry 98 98 Oxygen Delivery Me thod 01/30/23 18:00 01/30/23 18:02 01/30/23 18:15 Temperature Pulse Rate 59 L 60 59 L Pulse Rate [Pulse Oximeter] Respiratory Rate Blood Pressure 158/93 H Blood Pressure [Le ft Upper Arm] Blood Pressure [Ri ght Arm] Blood Pressure [or thostatic lying Ri ght Arm] Blood Pressure [or thostatic sitting Right Arm] Blood Pressure [or thostatic standing Right Arm] Pulse Oximetry 97 98 97 Oxygen Delivery Me thod 01/30/23 18:17 01/30/23 18:30 01/30/23 18:32 Temperature Pulse Rate 59 L 58 L 58 L Pulse Rate [Pulse Oximeter] Respiratory Rate Blood Pressure 162/99 H 156/98 H Blood Pressure [Le ft Upper Arm] Blood Pressure [Ri ght Arm] Blood Pressure [or thostatic lying Ri ght Arm] Blood Pressure [or thostatic sitting Right Arm] Blood Pressure [or thostatic standing Right Arm] Pulse Oximetry 98 97 97 Oxygen Delivery Nv thod 01/30/23 18:45 01/30/23 18:47 01/30/23 19:00 Temperature Pulse Rate 58 L 60 63 Pulse Rate [Pulse Oximeter] Respiratory Rate Blood Pressure 163/99 H Blood Pressure [Le ft Upper Arm] Blood Pressure [Ri ght Arm] Blood Pressure [or thostatic lying Ri ght Arm] Blood Pressure [or thostatic sitting Right Arm] Blood Pressure [or thostatic standing Right Arm] Pulse Oximetry 98 98 99 Oxygen Delivery Nv thod 01/30/23 19:02 01/30/23 19:07 01/30/23 19:15 Temperature Pulse Rate 63 64 62 Pulse Rate [Pulse Oximeter] Respiratory Rate Blood Pressure 164/92 H 169/90 H Blood Pressure [Le ft Upper Arm] Blood Pressure [Ri ght Arm] Blood Pressure [or thostatic lying Ri ght Arm] Blood Pressure [or thostatic sitting Right Arm] Blood Pressure [or thostatic standing Right Arm] Pulse Oximetry 98 99 98 Oxygen Delivery Nv thod 01/30/23 19:17 01/30/23 19:18 01/30/23 19:30 Temperature Pulse Rate 61 60 59 L Pulse Rate [Pulse Oximeter] Respiratory Rate Blood Pressure 163/94 H Blood Pressure [Le ft Upper Arm] Blood Pressure [Ri ght Arm] Blood Pressure [or thostatic lying Ri ght Arm] Blood Pressure [or thostatic sitting Right Arm] Blood Pressure [or thostatic standing Right Arm] Pulse Oximetry 97 97 97 Oxygen Delivery Nv thod 01/30/23 19:32 01/30/23 19:53 01/30/23 19:54 Temperature Pulse Rate 58 L 61 62 Pulse Rate [Pulse Oximeter] Respiratory Rate Blood Pressure 155/96 H 176/102 H Blood Pressure [Le ft Upper Arm] Blood Pressure [Ri ght Arm] Blood Pressure [or thostatic lying Ri ght Arm] Blood Pressure [or thostatic sitting Right Arm] Blood Pressure [or thostatic standing Right Arm] Pulse Oximetry 96 97 97 Oxygen Delivery Me thod 01/30/23 20:00 01/30/23 20:04 01/30/23 20:42 Temperature 98.2 F Pulse Rate 59 L Pulse Rate [Pulse Oximeter] 57 L Respiratory Rate 18 Blood Pressure 165/94 H Blood Pressure [Le ft Upper Arm] Blood Pressure [Ri ght Arm] 157/95 H Blood Pressure [or thostatic lying Ri ght Arm] Blood Pressure [or thostatic sitting Right Arm] Blood Pressure [or thostatic standing Right Arm] Pulse Oximetry 98 98 Oxygen Delivery Nv thod Room Air 01/30/23 20:42 01/30/23 23:00 01/30/23 23:00 Temperature Pulse Rate Pulse Rate [Pulse Oximeter] 55 L Respiratory Rate 18 Blood Pressure Blood Pressure [Le ft Upper Arm] Blood Pressure [Ri ght Arm] Blood Pressure [or thostatic lying Ri ght Arm] Blood Pressure [or thostatic sitting Right Arm] Blood Pressure [or thostatic standing Right Arm] Pulse Oximetry 97 97 Oxygen Delivery Nv thod Room Air Room Air 01/30/23 23:00 01/31/23 02:17 01/31/23 03:00 Temperature 97.5 F L 97.6 F Pulse Rate 53 L Pulse Rate [Pulse Oximeter] 55 L 57 L Respiratory Rate 18 16 Blood Pressure Blood Pressure [Le ft Upper Arm] Blood Pressure [Ri ght Arm] 155/95 H 151/94 H Blood Pressure [or thostatic lying Ri ght Arm] Blood Pressure [or thostatic sitting Right Arm] Blood Pressure [or thostatic standing Right Arm] Pulse Oximetry 97 97 Oxygen Delivery Me thod Room Air Room Air 01/31/23 06:03 01/31/23 07:41 01/31/23 07:45 Temperature 97.5 F L Pulse Rate Pulse Rate [Pulse Oximeter] 57 L Respiratory Rate 16 16 Blood Pressure Blood Pressure [Le ft Upper Arm] Blood Pressure [Ri ght Arm] 117/95 H Blood Pressure [or thostatic lying Ri ght Arm] 167/99 H Blood Pressure [or thostatic sitting Right Arm] 171/104 H Blood Pressure [or thostatic standing Right Arm] 184/108 H Pulse Oximetry 96 96 Oxygen Delivery Me thod Room Air Room Air Labs Labs: Laboratory Results - last 24 hr 01/30/23 01/30/23 01/30/23 16:28 18:19 20:00 WBC 8.39 RBC 4.81 Hgb 14.3 Hct 44.0 MCV 92 MCH 30 MCHC 33 RDW Coeff of Daniela 12.7 Plt Count 218 Neut % (Auto) 79.7 H Lymph % (Auto) 14.4 L [place] % (Auto) 5.0 Eos % (Auto) 0.7 Baso % (Auto) 0.1 Neut # (Auto) 6.70 Lymph # (Auto) 1.20 [place] # (Auto) 0.40 Eos # (Auto) 0.06 Baso # (Auto) 0.01 INR 1.05 VBG pH 7.371 VBG pCO2 46 VBG pO2 41.3 VBG HCO3 27 Sodium 136 Potassium 3.3 L Chloride 103 Carbon Dioxide 26 BUN 19 Creatinine 0.9 Estimated Creat Clear Estimated GFR 96 Glucose 144 H Lactate 1.5 Calcium 9.1 Total Bilirubin 1.0 Direct Bilirubin 0.3 AST 29 ALT 26 Alkaline Phosphatase 95 C-Reactive Protein < 0.5 L Total Protein 7.1 Albumin 4.3 TSH 1.120 Urine Color Yellow Urine Appearance Clear Urine pH 6.5 Ur Specific [place] 1.020 Urine Protein Negative Urine Glucose (UA) Negative Urine Ketones Negative Urine Blood Negative Urine Nitrite Negative Urine Bilirubin Negative Urine Urobilinogen 0.2 Ur Leukocyte Esterase Negative Urine RBC 0-2 Urine WBC 0-2 Ur Squamous Epith Cells None Other Sediment SPERM Urine Bacteria None Ethyl Alcohol < 0.01 L SARS-CoV-2 (PCR) Negative SARS-CoV-2 POC Troponin I 0.00 L 0.01 01/31/23 06:10 WBC 7.98 RBC 4.77 Hgb 14.3 Hct 43.3 MCV 91 MCH 30 MCHC 33 RDW Coeff of Daniela 12.7 Plt Count 236 Neut % (Auto) 68.1 Lymph % (Auto) 21.2 [place] % (Auto) 9.1 Eos % (Auto) 1.4 Baso % (Auto) 0.1 Neut # (Auto) 5.43 Lymph # (Auto) 1.69 [place] # (Auto) 0.70 Eos # (Auto) 0.11 Baso # (Auto) 0.01 INR VBG pH VBG pCO2 VBG pO2 VBG HCO3 Sodium 137 Potassium 3.5 L Chloride 104 Carbon Dioxide 27 BUN 14 Creatinine 0.9 Estimated Creat Clear 75.61 Estimated GFR 96 Glucose 105 Lactate Calcium 9.3 Total Bilirubin Direct Bilirubin AST ALT Alkaline Phosphatase C-Reactive Protein Total Protein Albumin TSH Urine Color Urine Appearance Urine pH Ur Specific [place] Urine Protein Urine Glucose (UA) Urine Ketones Urine Blood Urine Nitrite Urine Bilirubin Urine Urobilinogen Ur Leukocyte Esterase Urine RBC Urine WBC Ur Squamous Epith Cells Other Sediment Urine Bacteria Ethyl Alcohol SARS-CoV-2 (PCR) POC Troponin I
[2023-01-31] MEDS: hydroCHLOROthiazide 25 MG TABLET PO (09:49)
[2023-01-31] MEDS: LOSARTAN POTASSIUM 50 MG TABLET 100 MG PO (09:49)
[2023-01-31] MEDS: ATORVASTATIN 10 MG TABLET 20 MG PO (09:49)
[2023-01-31] MEDS: SODIUM CHLORIDE 0.9 % (FLUSH) 10 ML SYRINGE 5 ML IVF (10:04)
--- NOTE | 2023-01-31 10:16 | CRLHL7_ITS ---
For Patients: As a result of the Century Cures Act, medical imaging exams and procedure reports are released immediately into your electronic medical record. You may view this report before your referring provider. If you have questions, please contact your health care provider. INDICATION: Altered mental status. Presyncope. TECHNIQUE: Multiplanar multisequence noncontrast MR images acquired through the brain. COMPARISON: CTA head and neck 01/30/2023. FINDINGS: The ventricles and sulci are within normal limits for patient age. No mass effect or midline shift. Few punctate FLAIR hyperintensities in the supratentorial white matter, nonspecific. No diffusion restriction to suggest acute infarction. No intracranial hemorrhage or pathologic extra-axial fluid collection. Chiari 1 malformation with the cerebellar tonsils descending approximately 1.9 cm caudal to the foramen magnum and demonstrating angular morphology. There is crowding of the subarachnoid spaces at the foramen magnum. The major arterial flow voids of the skullbase are preserved. The globes are symmetric. The paranasal sinuses are well aerated. Trace right mastoid fluid. IMPRESSION: 1. No acute infarction, mass effect, or intracranial hemorrhage. 2. Chiari 1 malformation with the cerebellar tonsils descending approximately 1.9 cm caudal to the foramen magnum and demonstrating angular morphology. There is crowding of the subarachnoid spaces at the foramen magnum. 3. Few punctate T2 FLAIR hyperintensities in the supratentorial white matter are nonspecific, though typical for sequelae of minimal chronic microvascular ischemic changes or migraine headaches. Dictated by Bret Cagle MD @ 01/31/2023 5:00:13 PM (Electronically Signed)
--- NOTE | 2023-01-31 19:09 | PC.NURSE ---
VSS. TELE SHOWING SINUS ROSALIO WITH BBB. UP WITH SBA AND WALKER AND TOLERATED ACTIVITY WELL. PATIENT DID REPORT PAIN AT THE BASE OF HIS NECK AFTER THE MRI WHICH WAS RELIEVED WITH AN ICE PACK. TOLERATING REGULAR DIET WITH NO C/O N/V. SL x2 DC'D AND REVIEWED DC INSTRUCTIONS WITH PATIENT.
--- NOTE | 2023-01-31 19:33 | PC.NURSE ---
PT LEFT UNIT @1926 AMBULATING INDEPENDENTLY ACCOMPANIED BY WITH DC INSTRUCTIONS AND ALL BELONGINGS. NURSE WALKED PT AND SPOUSE TO ED ENTRANCE; PT WITHOUT DISTRESS.
[2023-02-04 08:24] LABS: Anaplasma phagocyt PCR Not Detected; Babesia microti by PCR Not Detected; Babesia species by PCR Not Detected; Ehrlichia chaffeensis by PCR Not Detected; Ehrlichia ewingii/canis by PCR Not Detected; Ehrlichia muris-like by PCR Not Detected
== END 2023-01-31 19:26 | disposition home or self-care (01) ==
LOC: ED 18:03 → MEDSURG 20:34
PROVIDERS: Family Medicine; Admitting Provider Family Medicine; Emergency Provider Emergency Medicine; PCP Family Medicine; Visit Provider Family Medicine
DX: R00.1 Bradycardia, unspecified (principal); I10 Essential (primary) hypertension; J44.9 Chronic obstructive pulmonary disease, unspecified; E78.5 Hyperlipidemia, unspecified
CPT/HCPCS: 36415; 51798; 70450; 70496; 70498; 70551; 74177; 80048; 80076; 81001; 82077; 82803; 83605; 84443; 84484; 85025; 85610; 86140; 86618; 87635; 87798; 93005; 93306; 94761; 96360; 97110; 97116; 97161; 99284; 99285; 99291; A9270; G0378; J7030; Q9967

== ENCOUNTER 2023-02-14 13:19 | Outpatient (CLI) | payer BC, SELFPAY ==
--- NOTE | 2023-02-14 13:45 | CRLHL7_ITS ---
For Patients: As a result of the Cures Act, medical imaging exams and procedure reports are released immediately into your electronic medical record. You may view this report before your referring provider. If you have questions, please contact your health care provider. INDICATION: Lesion right kidney; needs further assessment. COMPARISON: CT abdomen and pelvis with intravenous contrast January 30, 2023. TECHNIQUE: Precontrast T1 and T2 weighted imaging; T2 haste imaging; diffusion weighted imaging; in and out of phase imaging; postcontrast imaging including subtraction; 15 cc of Dotarem contrast was injected. Findings: Multiple cystic lesions both kidneys. A 2 cm cystic lesion lateral aspect lower pole right kidney with high signal on the precontrast T1 weighted imaging and low signal on the precontrast T2 weighted imaging without any enhancement after intravenous injection of contrast indicating a hemorrhagic/complicated cyst. A 3.2 cm simple cortical cyst lower pole right kidney with high signal on the precontrast T2 haste imaging and low signal on the precontrast T1 weighted imaging without any enhancement after intravenous injection of contrast. A 3 cm cyst identified lower pole right kidney. A 3.6 cm cyst lower pole left kidney. A 2.4 cm cyst upper pole left kidney. No focal hepatic or splenic pathology. No pancreatic pathology. Gallbladder is unremarkable. No adrenal pathology. No enhancing mass lesions in the kidneys on either side. No retroperitoneal lymphadenopathy. No evidence of abdominal ascites. IMPRESSION: 1. Multiple simple cortical cysts both kidneys. 2. A 2 cm hemorrhagic/complicated cyst lower pole right kidney; Bosniak 2 F cyst; ultrasound examination of the right in kidney 6 months duration suggested. Dictated by Jae Singh MD @ 02/18/2023 6:03:39 PM (Electronically Signed)
== END 2023-02-14 13:20 | disposition home or self-care (01) ==
LOC: MRI 13:20
PROVIDERS: PCP Family Medicine; Visit Provider Family Medicine
DX: N28.9 Disorder of kidney and ureter, unspecified (principal); N28.1 Cyst of kidney, acquired
CPT/HCPCS: 74183; A9575

== ENCOUNTER 2023-09-11 12:21 | Outpatient (CLI) | payer BC, SELFPAY ==
--- NOTE | 2023-09-11 13:00 | CRLHL7_ITS ---
For Patients: As a result of the Century Cures Act, medical imaging exams and procedure reports are released immediately into your electronic medical record. You may view this report before your referring provider. If you have questions, please contact your health care provider. INDICATION: 2 cm hemorrhagic/complicated cyst arising from the lower right kidney as seen on MRI. TECHNIQUE: Conventional two-dimensional grayscale ultrasound of the kidneys and bladder. COMPARISON: Abdomen MRI of 02/14/2023 and abdomen/pelvis CT of 01/30/2023 FINDINGS: A benign-appearing exophytic 2 cm cyst arises from the lateral aspect of the mid to inferior right kidney and corresponds to the lesion of concern on both the previous MRI and CT. Multiple additional parenchymal cysts are demonstrated bilaterally. No hydronephrosis is evident. The bladder is grossly negative. IMPRESSION: Benign-appearing exophytic 2 cm cyst arising from the lateral aspect of the mid to inferior right kidney, corresponding to the lesion of concern on both the previous MRI and CT. Dictated by Rafa Cerna MD @ 09/11/2023 4:15:45 PM (Electronically Signed)
== END 2023-09-11 12:22 | disposition home or self-care (01) ==
PROVIDERS: PCP Family Medicine; Visit Provider Family Medicine
DX: N28.1 Cyst of kidney, acquired (principal)
CPT/HCPCS: 76775

== ENCOUNTER 2025-06-29 14:44 | Outpatient (CLI) | payer MEDICARE, BC, SELFPAY ==
--- NOTE | 2025-06-29 15:00 | CRLHL7_ITS ---
For Patients: As a result of the Century Cures Act, medical imaging exams and procedure reports are released immediately into your electronic medical record. You may view this report before your referring provider. If you have questions, please contact your health care provider. Indication: Left elbow injury Technique: Noncontrast CT left elbow Please note that all CT scans at this facility use dose modulation, iterative reconstruction, and/or weight-based dosing when appropriate to reduce radiation dose to as low as reasonably achievable. Comparison: X-rays June 23, 2025 Findings: Multiple ossicles adjacent to the lateral humeral epicondyle measure up to 7 millimeters consistent with chronic lateral epicondylitis. Posterior olecranon spurs are also present. Radiocapitellar and ulnar humeral spurring. No joint effusion. Subchondral cystic change within the coronoid process and capitellum. Hypertrophic changes to the posterior olecranon at the posterior joint space. The triceps tendon appears to be intact on the soft tissue windows. Fluid is located deep to the triceps tendon extending over a craniocaudad length of 4.8 cm. Multiple densities are present within this collection of fluid. Impression: No evidence of acute fracture. No synovitis. Degenerative joint disease and chronic lateral epicondylitis. Intact triceps tendon with a collection of fluid deep to the triceps tendon suggesting muscular injury. Please note that all CT scans at this facility use dose modulation, iterative reconstruction, and/or weight-based dosing when appropriate to reduce radiation dose to as low as reasonably achievable. Dictated by Aydin Doss MD @ 06/30/2025 8:40:29 AM (Electronically Signed)
== END 2025-06-29 14:45 | disposition home or self-care (01) ==
LOC: CT 14:48
PROVIDERS: PCP Family Medicine; Visit Provider Physician Assistant Surgical
DX: M25.522 Pain in left elbow (principal); M19.022 Primary osteoarthritis, left elbow; S49.92XA Unspecified injury of left shoulder and upper arm, initial encounter; M79.632 Pain in left forearm; M79.89 Other specified soft tissue disorders
CPT/HCPCS: 73200